=== PATIENT | male | born 1965 | race African-American/Black ===

== ENCOUNTER 2024-01-16 11:18 | Emergency (ER) | payer MEDICAID ==
[~2024-01-16] VITALS: Ht 177.8 cm; Wt 122.0 kg
[2024-01-16 11:24] VITALS: O2SAT 97
[2024-01-16] MEDS ORDERED: IBUP-2029 MT (13:26)
[2024-01-16] MEDS ORDERED: METH-653 MT (13:26)
[2024-01-16] MEDS: IBUPROFEN 600MG TABLET PO ONE (13:29)
[2024-01-16] MEDS: METHOCARBAMOL 500MG TABLET PO ONE (13:29)
[2024-01-16 13:35] VITALS: BP 121/86; PULSE 80; RESP 18; TEMP 98
== END 2024-01-16 13:40 | disposition home or self-care (01) ==
LOC: ER 11:30
DX: S13.4XXA Sprain of ligaments of cervical spine, initial encounter (principal); S33.5XXA Sprain of ligaments of lumbar spine, initial encounter; V49.9XXA Car occupant (driver) (passenger) injured in unspecified traffic accident, initial encounter; Y93.89 Activity, other specified; Y92.89 Other specified places as the place of occurrence of the external cause; Y99.8 Other external cause status
CPT/HCPCS: 73502; 74176; 99284